=== PATIENT | male | born 1995 | race Caucasian/White ===

== ENCOUNTER 2017-05-04 19:36 | Emergency (ER) | payer SELFPAY ==
[2017-05-04 20:14] LABS: Hematocrit 40.8 % (42.0-52.0); Hemoglobin 14.8 gm/dL (13.5-18.0); Mean Cell Volume 86.6 fl (78-100); Mean Corpuscular Hemoglobin 31.4 pg (27-31); Mean Corpuscular Hgb Conc 36.3 g/dl (32-36); Mean Platelet Volume 8.4 fl (6.0-9.5); Neutrophil # 10.8 K/mm3 (1.3-6.0); Neutrophil % 81.5 % (42-75.0); Platelet Count 296 K/mm3 (150-450); Red Blood Count 4.71 M/mm3 (4.7-6.0); Red Cell Distribution Width 13.1 % (11.5-14.0); White Blood Count 13.3 K/mm3 (4.0-10.5)
--- NOTE | 2017-05-04 20:21 | ERNOTE ---
Neuro HPI ER Record Date of Service: 05/04/17 Presenting Symptoms: weakness, other - syncope and seizure Time Seen by Provider: 05/04/17 19:51 Source: patient, family Exam Limitations: no limitations Immunizations: IMMUNIZATION HX Immunizations Up to Date Yes History of Influenza Vaccine No Hx Pneumococcal Vaccination No Allergies/Adverse Reactions: Allergies Allergy/AdvReac Type Severity Reaction Status Date / Time No Known Allergies Allergy Unverified 05/04/17 19:39 Home Medications: HOME MEDICATIONS FLUoxetine HCL [Prozac] 20 mg PO DAILY 05/04/17 [Last Taken Unknown] - History of Present Illness Narrative: This is a 22-year-old male with no significant past medical history who comes into the emergency department after having a generalized tonic-clonic seizure. He was with his family earlier today watching a movie when he was noted to stiffen up. He then had rhythmic junior, clenching of the jaws, and unresponsiveness for approximately 8 minutes. He did not bite his tongue he did not have loss of bladder control. The patient came out of this and refused to come to the ER despite his family wanting him to. Approximately half an hour later he was in the kitchen and he appeared to have a syncopal episode. He did not hit his head however. It sounds like his family member caught him. The patient returned to consciousness within 30 seconds. The patient has had no recent illnesses. No new medicines. No sick contacts. He denies headache, blurred vision, nausea, vomiting, diarrhea, chest pain, shortness of breath. The patient has no other somatic complaints Onset: sudden onset Severity: severe Review of Systems - Review of Systems Constitutional: Present: weakness EYE: Present: no symptoms reported ENT: Present: no symptoms reported Respiratory: Present: no symptoms reported. Absent: shortness of breath Cardiology: Present: no symptoms reported. Absent: chest pain, palpitations Gastrointestinal/Abdominal: Present: no symptoms reported. Absent: nausea, vomiting, diarrhea Genitourinary: Present: no symptoms reported. Absent: pain, dysuria Musculoskeletal: Present: no symptoms reported Skin: Present: no symptoms reported Neurological: Present: See HPI, seizure, other - syncope Endocrine: Present: no symptoms reported Hematologic/Lymphatic: Present: no symptoms reported Psych: Present: no symptoms reported All Other Systems: All systems neg except as marked - Patient's Past Medical History Patient History - Medical: Anxiety, GERD Patient History - Cardiac/Respiratory: Pneumonia Patient History - Cancer: No Hx of Cancer Patient History - Surgical Procedures: No surgical history Patient History - Other: None - Social History Living Situations: home Abuse History: No History of abuse Psych History: Hx of Anxiety Alcohol Use: none Drug Use: none - Immunizations Immunizations Up to Date: Yes Hx Pneumococcal Vaccination: No History of Influenza Vaccine: No Physical Exam - Physical Exam General Appearance: Present: wd/wn, alert, no apparent distress Head Exam: Present: normal inspection, no evidence of injury Eye Exam: Normal inspection: bilateral, PERRL: bilateral, EOMI: bilateral Ears, Nose, Throat: Present: normal ENT inspection, normal pharynx Neck: Present: normal inspection, nontender Respiratory: Present: no respiratory distress, normal breath sounds, lungs clear Cardiovascular/Chest: Present: regular rate, rhythm, no murmur, normal peripheral pulses Gastrointestinal/Abdominal: Present: normal bowel sounds, nontender, soft Back Exam: Present: normal inspection, no CVA tenderness, no vertebral tenderness Extremity Exam: Present: normal inspection, non-tender, no edema Neurological Exam: Present: alert, oriented, normal mood/affect, no motor/ sensory deficits, lapeler II-XII nml as tested, normal cerebellar test. Absent: facial droop, motor weakness, disoriented to person, disoriented to time, disoriented to place, disoriented to situation DTR: N=norm/NB=norm/brisk/A=abs/DD=dull/dimin/HC=hyperactive: Bicep (R): Normal , Bicep (L): Normal, Knee (R): Normal, Knee (L): Normal Skin Exam: Present: normal color, warm/dry Lymphatic Exam: Present: no adenopathy ED Progress - Results and Orders Patient's Lab Results:: I have reviewed the patient's lab results. - Vital Signs Patient's Vital Signs:: I have reviewed the patient's vital signs. Vital Signs: Vital Signs 05/04/17 05/04/17 19:40 19:50 Temperature 36.7 C Pulse Rate 92 92 Respiratory 18 Rate Blood Pressure 143/55 O2 Sat by Pulse 100 Oximetry - EKG EKG: NSR EKG read: Interp. by me EKG Comments: normal axis, normal intervals, no acute ischemic changes - X-Ray X-Ray #1 X-Ray: chest Interpretation: Interp. by me X-ray Comments: Borderline hyperexpansion. No acute cardiopulmonary disease. - CT/Ultrasound CT/Ultrasound Narrative: CT does not show any large area ischemic stroke no intracranial bleed no masses. No significant abnormalities - Progress/Reassessment Chief Complaint: Seizure Activity Progress:: Re-examined Progress Note-Subjective: 05/04/17 21:48 Patient has had no further episodes of syncope nor of seizure. Plan - Plan Plan: I discussed with the patient that all of his labs and tests have come back normal with the exception of the drug screen which did show marijuana. Patient says that he hasn't used marijuana in 2 or 3 weeks. The patient is new to the area, but his family does have a primary care doctor in the trying to get him in to see their primary care. I've explained to the patient that we have no definitive cause for his symptoms. I advised him to minimize driving. I've advised him that he needs to follow-up with the family doctor as soon as possible. I've advised him to avoid alcohol, red bull, or illicit drugs. The patient is been made aware that if he has recurrence of symptoms or if he develops anything new or concerning he should return to the ER immediately. He verbalized understanding. Departure Clinical Impression: Seizure - Departure Disposition: Home self-care Condition: Stable Instructions: Nonepileptic Seizures Additional Instructions: As we discussed, the tests and studies did not show a definitive cause for his symptoms. This does not mean that there is nothing wrong, only that the ER has been unable to definitely determine why you're having her symptoms. It is crucial that you follow-up with the family doctor. Call, tell them you were seen in the ER, and set up an emergency appointment as soon as possible. If you have recurrence of these symptoms she need to return to the ER immediately. Return for any new or worrisome symptoms
[2017-05-04 20:24] LABS: Urine Appearance Slightly Cloudy; Urine Bilirubin Negative (NEGATIVE); Urine Blood 25 /ul (NEGATIVE); Urine Color Yellow; Urine Ketone Negative (NEGATIVE); Urine Nitrite Negative (NEGATIVE); Urine Protein 100 mg/dL (NEGATIVE); Urine Specific Gravity 1.025 SP.GR. (1.005-1.030); Urine Urobilinogen Normal (NORMAL)
[2017-05-04 20:25] LABS: Cocaine Ur Negative (NEGATIVE); Urine Amorphous Sediment Few - 1+ (NONE-FEW); Urine Bacteria TRACE; Urine Barbiturate Negative (NEGATIVE); Urine Benzodiazepines Negative (NEGATIVE); Urine Opiates Negative (NEGATIVE); Urine PCP Negative (NEGATIVE); Urine RBC 0-5 /hpf (0-5); Urine THC Positive (NEGATIVE); Urine WBC 0-5 /hpf (0-5)
[2017-05-04 20:27] LABS: ALT 32 U/L (19-67); AST 19 U/L (0-48); Albumin * 4.2 gm/dl (3.4-5.0); Alkaline Phosphatase * 65 U/L (50-170); Anion Gap 15.2 mmol/L (6.8-13.8); BUN/Creatinine Ratio 9.3 (9.0-21.6); Bilirubin, Total 0.6 mg/dL (0.0-1.1); Blood Urea Nitrogen 10 mg/dL (6-23); Ca. Corrected For Albumin 8.8 mg/dL (8.4-10.2); Calcium * 9.3 mg/dL (7.9-10.9); Carbon Dioxide 25.2 mmol/L (24-32.6); Chloride 103 mmol/L (97-106); Glucose * 116 mg/dL (70-110); Magnesium 2.5 mg/dL (1.2-2.8); Potassium 3.4 mmol/L (3.4-4.6); Sodium 140 mmol/L (132-142); Total Protein 7.5 gm/dL (6.2-8.2)
[2017-05-04 20:28] LABS: Troponin I Less than 0.017 ng/ml (0.00-0.10)
[2017-05-05 03:03] VITALS: BP 128/70
== END 2017-05-04 22:19 | disposition home or self-care (01) ==
LOC: ER 19:36
DX: R56.9 Unspecified convulsions (principal); F41.9 Anxiety disorder, unspecified